=== PATIENT | male | born 1975 | race Caucasian/White ===

== ENCOUNTER → 2021-12-19 | Outpatient (CLI) | payer OTHER ==
--- NOTE | 2021-12-19 13:33 | CONS ---
CONSULTATION DATE OF SERVICE: 12/19/2021 This 46-year-old gentleman has been evaluated [facility] for obstructive sleep apnea-hypopnea syndrome. HISTORY OF PRESENT ILLNESS/SLEEP-WAKE EVALUATION: Patient has a history of obstructive sleep apnea and he was started on treatment with CPAP in 2018. He continued to use CPAP but stopped using it one year ago after he had open-heart surgery for cardiomyopathy. At that time he was not able to tolerate the pressure in his machine. Currently his sleep schedule is from midnight until between 5 and 7 a.m. No problems with falling asleep. He has a TV set in the bedroom. He sleeps in different positions. He wakes up from sleep up to 8 times. Questionable history of hypnagogic hallucinations. No sleep paralysis or cataplexy. He snores loudly and has episodes of stopped breathing during sleep, awakenings with choking, grinding teeth, dry mouth, restless legs and sweating. In the morning the patient wakes up tired, worries about his sleep, has problems with memory, depression, anxiety and sexual dysfunction. Wilson Sleepiness Scale is significantly increased to 16. PAST MEDICAL HISTORY: Positive for cardiomyopathy, hyperlipidemia, hypertension, headaches, acid reflux, hyperlipidemia, depression, anxiety, pericarditis after surgery. PAST SURGICAL HISTORY: Open-heart surgery for obstructive cardiomyopathy on 03/07/2021, pacemaker defibrillation insertion on 09/10/2021. MEDICATIONS: 1. Metoprolol 50 mg twice a day. 2. TriCor 145 mg once a day. 3. Buspirone 15 mg once a day. 4. Eliquis 5 mg twice a day. 5. Atorvastatin 10 mg once a day. 6. Lisinopril 40 mg once a day. 7. Sertraline 50 mg once a day. 8. Topamax 100 mg once a day. SOCIAL HISTORY: Positive for smoking cigars. Alcohol consumption occasional. FAMILY HISTORY: Hypertension, heart problems, stroke, headaches, sleep apnea, diabetes, acid reflux. REVIEW OF SYSTEMS: Multiple awakenings from sleep, loud snoring, sleepiness during the day. No fevers. No double vision. No recent chest pain. No shortness of breath. No abdominal pain. No bleeding episodes. No blood in the urine. No seizure episodes. I checked the patient's CPAP unit. Pressure is 16 cm of water. The patient used it about 10 months ago, and at that time leaks was 31 L/minute. PHYSICAL EXAMINATION: GENERAL: Pleasant patient in no distress. VITAL SIGNS: BP 132/87, HR 71, RR 16, height 6 feet 0 inches, weight 308.6, body mass index 41.7, temperature 97.2, oxygen saturation at room air 97%. HEENT: PERRLA, EOMI, evaluation of oropharynx showed tongue protrudes midline. Big uvula. Mallampati II to III. NECK: Supple, no JVD. Thyroid is not palpable. Wide neck; 19-1/2 inches in circumference. LUNGS: Clear to percussion and to auscultation. Good air exchange. No wheezing or rhonchi. HEART: S1, S2 regular. No murmurs, gallops, or rubs. ABDOMEN: Soft and nontender. Bowel sounds are present. No organomegaly appreciated. EXTREMITIES: No clubbing or cyanosis. SAFE AND VAULT MECHANIC: Awake, alert, and oriented X3. Cranial nerves 2 to 7 intact. There is no fasciculation or atrophy. noted. No focal deficits observed. IMPRESSION: 1. Snoring, witnessed episodes of stopped breathing during sleep, history of obstructive sleep apnea in the past; obstructive sleep apnea-hypopnea syndrome. 2. History of hypertrophic cardiac cardiomyopathy, status post open-heart surgery on 03/07/2021. 3. Status post permanent pacemaker and defibrillator insertion on 09/10/2021. 4. Obesity. 5. Hypertension. 6. Headaches. 7. Acid reflux. 8. Hyperlipidemia. 9. History of pericarditis after surgery. 10.History of depression. 11.History of anxiety. PLAN: 1. I adjusted the patient's machine to automatic regimen, range of the pressure 8 to 14. 2. CPAP, if necessary BiPAP titration for correction of respiratory abnormalities at the present time after open-heart surgery. 3. Losing weight. 4. Sleep hygiene with regular time in bed for 7-1/2 to 8 hours. 5. No driving if feeling sleepiness. Thank you very much for referring this patient for consultation. Sincerely, Rajesh Jung MD, PhD, FAASM Diplomat of [place] [employer] Sleep Medicine Board of [place] [employer] Business Continuity Coordinator of [facility] [place] MMODL / IJN: [id number] /
== END ==
LOC: SLEEP 11:15
PROVIDERS: ATTEND Internal Medicine
DX: G47.33 Obstructive sleep apnea (adult) (pediatric) (principal); E66.9 Obesity, unspecified; I10 Essential (primary) hypertension; K21.9 Gastro-esophageal reflux disease without esophagitis; E78.5 Hyperlipidemia, unspecified; F32.A Depression, unspecified; F41.9 Anxiety disorder, unspecified; Z86.79 Personal history of other diseases of the circulatory system; Z95.810 Presence of automatic (implantable) cardiac defibrillator; Z99.89 Dependence on other enabling machines and devices; Z79.01 Long term (current) use of anticoagulants; F17.200 Nicotine dependence, unspecified, uncomplicated
CPT/HCPCS: 99202

== ENCOUNTER 2024-08-24 16:53 | Observation (INO) | payer OTHER ==
--- NOTE | 2024-08-24 17:12 | ED ---
Chest Pain HPI - General Chief Complaint: Chest Pain Stated Complaint: SOB, chest pain Time Seen by Provider: 08/24/24 17:04 Source: patient, family, RN notes reviewed, old records reviewed Mode of arrival: ambulatory Limitations: no limitations - History of Present Illness Initial Comments: This is a 49-year-old male sent to the ER by his primary care for chest pain chest pain with concern for CHF or fluid around the heart MD Complaint: chest pain -: days(s) Onset: during rest, during exertion Pain Location: substernal, left chest Pain Radiation: none Severity: moderate Severity scale (1-10): 4 Quality: tightness, aching, heaviness Consistency: constant Improves With: nothing Worsens With: exertion Anginal Symptoms: dyspnea Other Symptoms: palpitations Treatments Prior to Arrival: none - Related Data Home Medications Medication Instructions Recorded Confirmed Apixaban [Eliquis] 5 mg PO BID 08/24/24 08/24/24 Ascorbic Acid [Vitamin C] 2,000 mg PO DAILY 08/24/24 08/24/24 Atorvastatin [Lipitor] 10 mg PO HS 08/24/24 08/24/24 Cetirizine HCl [Zyrtec] 10 mg PO DAILY 08/24/24 08/24/24 Cholecalciferol (Vitamin D3) 125 mcg PO DAILY 08/24/24 08/24/24 [Vitamin D3 (125 MCG = 5,000 IU)] Erenumab-Aooe [Aimovig 70 mg SQ QMONTHLY 08/24/24 08/24/24 Autoinjector] Fenofibrate Nanocrystallized 145 mg PO DAILY 08/24/24 08/24/24 [Fenofibrate] Metoprolol Tartrate [Lopressor] 50 mg PO BID 08/24/24 08/24/24 Multivitamins, Thera [Multivitamin 1 tab PO DAILY 08/24/24 08/24/24 (formulary)] Sertraline [Zoloft] 200 mg PO DAILY 08/24/24 08/24/24 Topiramate [Topamax] 100 mg PO HS 08/24/24 08/24/24 Vitamin E (Dl,Tocopheryl Acet) 400 unit PO DAILY 08/24/24 08/24/24 [Vitamin E (400 Iu = 180 mg)] Zinc Gluconate [Zinc] 50 mg PO DAILY 08/24/24 08/24/24 busPIRone HCL 22.5 mg PO HS 08/24/24 08/24/24 Previous Rx's Medication Instructions Recorded Amiodarone [Cordarone] 400 mg PO BID #180 tab 08/26/24 Dapagliflozin Propanediol [Farxiga] 10 mg PO DAILY #30 tab 08/26/24 Losartan [Cozaar] 25 mg PO DAILY #30 tab 08/26/24 Spironolactone [Aldactone] 12.5 mg PO DAILY #30 tab 08/26/24 Allergies Allergy/AdvReac Type Severity Reaction Status Date / Time No Known Allergies Allergy Verified 08/24/24 20:39 Review of Systems ROS Statement: Those systems with pertinent positive or pertinent negative responses have been documented in the HPI. ROS Other: All systems not noted in ROS Statement are negative. EKG Findings - EKG Comments: EKG Findings:: EKG is sinus 82 GA 168 QRS 157 QTc 454 - EKG Results: EKG: interpreted by CARY Past Medical History Past Medical History: Hyperlipidemia, Hypertension Additional Past Medical History / Comment(s): pericarditis Past Surgical History: Orthopedic Surgery Additional Past Surgical History / Comment(s): Open heart Smoking Status: Light tobacco smoker Past Alcohol Use History: Rare Past Drug Use History: None Reported - Past Family History Father Family Medical History: CVA/TIA, Hyperlipidemia, Hypertension, Myocardial Infarction ([place]) Mother Family Medical History: No Reported History General Exam Limitations: no limitations General appearance: alert, in no apparent distress, anxious Head exam: Present: atraumatic, normocephalic, normal inspection Eye exam: Present: normal appearance, PERRL, EOMI. Absent: scleral icterus, conjunctival injection, periorbital swelling ENT exam: Present: normal exam, mucous membranes moist Neck exam: Present: normal inspection. Absent: tenderness, meningismus, lymphadenopathy Respiratory exam: Present: normal lung sounds bilaterally. Absent: respiratory distress, wheezes, rales, rhonchi, stridor Cardiovascular Exam: Present: regular rate, normal rhythm, normal heart sounds. Absent: systolic murmur, diastolic murmur, rubs, gallop, clicks GI/Abdominal exam: Present: soft, normal bowel sounds. Absent: distended, tenderness, guarding, rebound, rigid Extremities exam: Present: normal inspection, full ROM, normal capillary refill. Absent: tenderness, pedal edema, joint swelling, calf tenderness Back exam: Present: normal inspection Neurological exam: Present: alert, oriented X3, CN II-XII intact Psychiatric exam: Present: normal affect, normal mood Skin exam: Present: warm, dry, intact, normal color. Absent: rash Course Vital Signs 08/24/24 08/24/24 08/24/24 16:56 17:20 21:00 Temperature 98.3 F Pulse Rate 80 65 Pulse Rate [ 72 Licensed Psychologist Director ] Respiratory 20 16 Rate Blood Pressure 142/84 111/71 Blood Pressure [Right Arm] O2 Sat by Pulse 96 97 Oximetry 08/24/24 08/25/24 08/25/24 22:00 00:00 04:00 Temperature 98.3 F Pulse Rate 69 Pulse Rate [ 73 80 Licensed Psychologist Director ] Respiratory 22 18 16 Rate Blood Pressure 117/70 Blood Pressure 109/74 127/70 [Right Arm] O2 Sat by Pulse 95 97 80 L Oximetry 08/25/24 08/25/24 08/25/24 07:04 07:30 08:00 Temperature 98.5 F Pulse Rate 138 H 93 Pulse Rate [ 122 H Licensed Psychologist Director ] Respiratory 18 18 16 Rate Blood Pressure 116/85 121/82 Blood Pressure 118/105 [Right Arm] O2 Sat by Pulse 96 96 96 Oximetry 08/25/24 08/25/24 08/25/24 08:47 10:44 11:14 Temperature 97.9 F Pulse Rate 81 62 Pulse Rate [ Licensed Psychologist Director ] Respiratory 16 18 18 Rate Blood Pressure 112/77 109/68 103/65 Blood Pressure [Right Arm] O2 Sat by Pulse 97 96 97 Oximetry 08/25/24 08/25/24 12:11 13:34 Temperature Pulse Rate 64 Pulse Rate [ Licensed Psychologist Director ] Respiratory 18 Rate Blood Pressure 113/70 108/67 Blood Pressure [Right Arm] O2 Sat by Pulse 96 Oximetry - Reevaluation(s) Reevaluation #1: 08/24/24 17:11 Medical records reviewed Reevaluation #2: 08/24/24 17:11 Patient symptoms unchanged Reevaluation #3: 08/24/24 20:24 Patient informed of results questions answered Reevaluation #4: Was pt. sent in by a medical professional or institution (, PA, TECHNICAL PROGRAMS MANAGER, urgent care, hospital, or residential...) When possible be specific @ -no Did you speak to anyone other than the patient for history (EMS, parent, family, police, friend...)? What history was obtained from this source @ -no Did you review nursing and triage notes (agree or disagree)? Why? @ -agree Are old charts reviewed (outside hosp., previous admission, EMS record, old EKG, old radiological studies, urgent care reports/EKG's, residential records)? Report findings @ -yes Differential Diagnosis (chest pain, altered mental status, abdominal pain women, abdominal pain men, vaginal bleeding, weakness, fever, dyspnea, syncope, headache, dizziness, GI bleed, back pain, seizure, CVA, palpatations, mental health, musculoskeletal)? @ -prior EKG interpreted by me (3pts min.). @ -yes X-rays interpreted by me (1pt min.). @ -yes negative for acute disease CT interpreted by me (1pt min.). @ -Yes negative for acute disease U/S interpreted by me (1pt. min.). @ -no What testing was considered but not performed or refused? (CT, X-rays, U/S, labs)? Why? @ -none What meds were considered but not given or refused? Why? @ -none Did you discuss the management of the patient with other professionals (professionals i.e. , PA, TECHNICAL PROGRAMS MANAGER, lab, RT, psych nurse, transition social worker, food service sales representatives, teacher, chairman & chief executive officer, case making machine operator)? Give summary @ -no Was smoking cessation discussed for >3mins.? @ -no Was critical care preformed (if so, how long)? @ -yes31 Were there social determinants of health that impacted care today? How? (Homelessness, low income, unemployed, alcoholism, drug addiction, transportation, low edu. Level, literacy, decrease access to med. care, [facility], rehab)? @ -none Was there de-escalation of care discussed even if they declined (Discuss DNR or withdrawal of care, Hospice)? DNR status @ -no What co-morbidities impacted this encounter? (DM, HTN, Smoking, COPD, CAD, Cancer, CVA, ARF, Chemo, Hep., AIDS, mental health diagnosis, sleep apnea, morbid obesity)? @ -none Was patient admitted / discharged? Hospital course, mention meds given and route, prescriptions, significant lab abnormalities, going to OR and other pertinent info. @ - 49 male to ER for evaluation of chest pain but mainly exertional dyspnea going on for days to weeks to months. Progressively worsening to the point where patient is unable to do his normal activities of daily living and comes to the ER for further help in evaluation Admitted Undiagnosed new problem with uncertain prognosis? @ -no Drug Therapy requiring intensive monitoring for toxicity (Heparin, Nitro, Insulin, Cardizem)? @ -no Were any procedures done? @ -no Diagnosis/symptom? @ -Chest pain Acute, or Chronic, or Acute on Chronic? @ -Acute Uncomplicated (without systemic symptoms) or Complicated (systemic symptoms)? @ -Complicated Side effects of treatment? @ -no Exacerbation, Progression, or Severe Exacerbation? @ -exacerbation Poses a threat to life or bodily function? How? (Chest pain, [place], [place], pneumonia, PE, COPD, DKA, ARF, appy, cholecystitis, CVA, Diverticulitis, Homicidal, Suicidal, threat to staff... and all critical care pts) @ -yes chest pain Reevaluation #5: Differential Dyspnea: Coronary syndrome, arrhythmia, tamponade, asthma, COPD, pulmonary embolism, pneumonia, pneumothorax, pulmonary effusion, anaphylaxis, diabetic ketoacidosis, flailed chest, pulmonary contusion, diaphragmatic rupture, anemia, neuromuscular, this is not meant to be an all-inclusive list. - Consultations Consultation #1: Spoke with Lavelle who agrees to admit the patient Chest Pain MDM - MDM 49 male to ER for evaluation of chest pain but mainly exertional dyspnea going on for days to weeks to months. Progressively worsening to the point where patient is unable to do his normal activities of daily living and comes to the ER for further help in evaluation Critical Care Time Critical Care Time: Yes Total Critical Care Time: 31 Disposition Clinical Impression: Atypical chest pain, Chest pain, Exertional dyspnea Disposition: ADMITTED IP TO THIS HOSP Condition: Stable Is patient prescribed a controlled substance at d/c from ED?: No Time of Disposition: 20:25
--- NOTE | 2024-08-24 18:10 | XR ---
EXAMINATION TYPE: XR chest 2V DATE OF EXAM: 08/24/2024 COMPARISON: None INDICATION: Chest pain short of breath TECHNIQUE: Frontal and lateral views of the chest are obtained. FINDINGS: The heart size is normal. The pulmonary vasculature is normal. The lungs are clear. Pacemaker overlies the left chest. IMPRESSION: 1. No acute pulmonary process. [facility], Workstation: [facility], 08/24/2024 6:07 PM
[2024-08-24 18:23] LABS: Basophils % (A) 0 %; Eosinophils # (A) 0.5 k/uL (0-0.7); Eosinophils % (A) 5 %; HCT 42.3 % (39.0-53.0); HGB 13.9 gm/dL (13.0-17.5); Lymphocytes % (A) 19 %; MCH 30.2 pg (25.0-35.0); MCV 91.7 fL (80.0-100.0); Mean Platelet Volume 8.7; Monocytes # (A) 0.7 k/uL (0-1.0); Monocytes % (A) 7 %; Neutrophils # (A) 7.1 k/uL (1.3-7.7); Neutrophils % (A) 68 %; Platelet Count 189 k/uL (150-450); RBC 4.61 m/uL (4.30-5.90); RDW 12.9 % (11.5-15.5); WBC 10.5 k/uL (3.8-10.6)
[2024-08-24 18:39] LABS: ALT 20 U/L (4-49); AST 24 U/L (17-59); African American GFR (CKD) 73 (>60 ml/min/1.73 sqM); Alkaline Phosphatase 78 U/L (38-126); Anion Gap 8 mmol/L; Blood Urea Nitrogen 17 mg/dL (9-20); Calcium 9.9 mg/dL (8.4-10.2); Carbon Dioxide 18 mmol/L (22-30); Chloride 115 mmol/L (98-107); Glucose 164 mg/dL (74-99); Lipase 188 U/L (23-300); Magnesium 1.7 mg/dL (1.6-2.3); Non-African American GFR(CKD) 63 (>60 ml/min/1.73 sqM); Potassium 3.8 mmol/L (3.5-5.1); Sodium 141 mmol/L (137-145); Total Bilirubin 0.7 mg/dL (0.2-1.3); Total Protein 6.7 g/dL (6.3-8.2)
[2024-08-24 18:40] LABS: Partial Thromboplastin Time 33.6 sec (22.0-30.0); Prothrombin Time 11.1 sec (10.0-12.5)
[2024-08-24 18:47] LABS: NT-Pro-B-Type Natriuretic Pept 652 pg/mL
--- NOTE | 2024-08-24 20:04 | CT ---
CTA CHEST EXAMINATION TYPE: CT angio chest DATE OF EXAM: 08/24/2024 INDICATION: R/O PE. CT DLP: 951.5 mGycm, Automated exposure control for dose reduction was used. CONTRAST: Patient injected with 100ml mL of Isovue 370. COMPARISON: None TECHNIQUE: CT of the chest is performed on a spiral scan at 2 mm thick sections. Study is performed with intravenous contrast timed for evaluation for pulmonary embolism. This will limit additional po rtions of the evaluation. 3-D MIP images reconstructed by the technologist are reviewed on the compu ter in the coronal and sagittal planes. FINDINGS: No persistent filling defects are evident to suggest an acute pulmonary embolism. No mediastinal or hilar adenopathy enlarged by CT criteria is evident. The ascending aorta diameter at the level of the main pulmonary artery is 3.9 cm. The main pulmonary artery diameter at the bifurcation is 2.6 cm. Lung windows are clear. Limited CT sections were through the upper abdomen. Upper abdomen appears unremarkable. IMPRESSION: 1. No acute pulmonary embolism. 2. No acute pulmonary process. [facility], Workstation: [id number], 08/24/2024 8:01 PM
[2024-08-24] MEDS: SODIUM CHLORIDE 0.9% 1,000 ML IV SCH (21:20)
[2024-08-25] MEDS: METOPROLOL TARTRATE 50 MG TAB PO SCH (03:42)
[2024-08-25] MEDS: METOPROLOL TARTRATE 25 MG TAB PO STA (07:28)
[2024-08-25] MEDS: DILTIAZEM DRIP BOLUS FROM BAG 1 MG SOLN IV ONE (07:35)
[2024-08-25] MEDS: DILTIAZEM 125 MG in SODIUM CHLORIDE 0.9% 100 ML IV SCH (07:36)
[2024-08-25] MEDS: DEXTROSE 5% IN WATER 100 ML with AMIODARONE 150 MG IV ONE (08:52)
[2024-08-25] MEDS: APIXABAN 5 MG TAB PO SCH (08:56)
[2024-08-25] MEDS: LORATADINE 10 MG TAB PO SCH (08:57)
[2024-08-25] MEDS: ASCORBIC ACID 500 MG TAB PO SCH (08:57)
[2024-08-25] MEDS: ZINC SULFATE 220 MG CAP PO SCH (08:57)
[2024-08-25] MEDS: CHOLECALCIFEROL 125 MCG (5000 IU) TABLET PO SCH (08:57)
[2024-08-25] MEDS: lisinopriL 20 MG TAB PO SCH (08:58)
[2024-08-25] MEDS: FENOFIBRATE 160 MG TAB PO SCH (08:58)
[2024-08-25] MEDS: SERTRALINE 100 MG TAB PO SCH (08:58)
[2024-08-25] MEDS: MULTIVITAMINS, THERA 1 EACH TAB PO SCH (08:58)
[2024-08-25] MEDS: VITAMIN E (DL,TOCOPHERYL ACET) 400 UNIT (180 MG) CAP PO SCH (08:59)
[2024-08-25] MEDS: AMIODARONE 360 MG in DEXTROSE 5% IN WATER 200 ML IV ONE (09:02)
[2024-08-25] MEDS: METOCLOPRAMIDE 5 MG/ML 2 ML VIAL IVP STA (10:52)
[2024-08-25] MEDS: ACETAMINOPHEN IV (For NPO) 1,000 MG in EMPTY BAG 1 BAG IVPB STA (10:57)
--- NOTE | 2024-08-25 11:06 | CA ---
Transthoracic Echo Report Name: Olivier Urban Age: 49 Gender: M : 1975 Exam Date: 08/25/2024 08:04 Exam Location: [facility] Ht (in): 72 Wt (lb): 290 Ordering Physician: Evan Maldonado DO Attending/Referring Phys: [id number], Joel Pharmacy Technician Assistant Cathy Perez RDCS Procedure CPT: Indications: Heart failure Cardiac Hx: Technical Quality: Technically difficult study Contrast 1: Definity Total Dose (mL): 2 Contrast 2: Total Dose (mL): MEASUREMENTS (Male / Female) Normal Values 2D ECHO LV Diastolic Diameter PLAX 4.2 cm 4.2 - 5.9 / 3.9 - 5.3 cm LV Systolic Diameter PLAX 3.2 cm IVS Diastolic Thickness 1.9 cm 0.6 - 1.0 / 0.6 - 0.9 cm LVPW Diastolic Thickness 1.3 cm 0.6 - 1.0 / 0.6 - 0.9 cm LV Relative Wall Thickness 0.8 RV Internal Dim ED PLAX 2.9 cm LV Diastolic Volume MOD BP 136.0 cm??? 67 - 155 / 56 - 104 cm??? LV Systolic Volume MOD BP 93.3 cm??? 22 - 58 / 19 - 49 cm??? LV Ejection Fraction MOD BP 31.4 % >= 55 % LV Cardiac Index MOD BP 1358.9 cm???/min???m??? LV Diastolic Volume MOD 4C 166.4 cm??? LV Systolic Volume MOD 4C 109.9 cm??? LV Ejection Fraction MOD 4C 34.0 % LV Cardiac Index MOD 4C 1800.4 cm???/min???m??? LV Diastolic Length 4C 8.3 cm LV Systolic Length 4C 7.6 cm LV Diastolic Volume MOD 2C 109.9 cm??? LV Systolic Volume MOD 2C 78.7 cm??? LV Ejection Fraction MOD 2C 28.3 % LV Cardiac Index MOD 2C 990.4 cm???/min???m??? LV Diastolic Length 2C 8.2 cm LV Systolic Length 2C 7.8 cm LA Volume 68.4 cm??? 18 - 58 / 22 - 52 cm??? LA Volume Index 25.9 cm???/m??? 16 - 28 cm???/m??? M-MODE Aortic Root Diameter MM 4.4 cm LA Systolic Diameter MM 4.3 cm LA Ao Ratio MM 1.0 DOPPLER AV Peak Velocity 93.8 cm/s AV Peak Gradient 3.5 mmHg AV Mean Velocity 69.2 cm/s AV Mean Gradient 2.2 mmHg AV Velocity Time Integral 15.5 cm LVOT Peak Velocity 88.5 cm/s LVOT Peak Gradient 3.1 mmHg LVOT Velocity Time Integral 14.9 cm MV Area PHT 4.8 cm??? Mitral E Point Velocity 83.6 cm/s Mitral A Point Velocity 0.2 cm/s Mitral E to A Ratio 347.9 MV Deceleration Time 159.4 ms MV E' Velocity 7.2 cm/s Mitral E to MV E' Ratio 11.6 TR Peak Velocity 202.0 cm/s TR Peak Gradient 16.3 mmHg Right Ventricular Systolic Press 21.3 mmHg FINDINGS Left Ventricle Severely increased septal wall thickness. Severely increased left ventricular systolic volume. Moderately decreased left ventricular ejection fraction. Left ventricular ejection fraction is estimated at 30-35 %. Grade 1 diastolic dysfunction. Right Ventricle Normal right ventricular size and function. Right ventricular systolic pressure within normal limits. Right Atrium Normal right atrial size. Catheter/pacemaker wire in the right atrial cavity. Left Atrium Mildly increased left atrial volume. Mildly increased left atrial area. Mitral Valve Structurally normal mitral valve. Mild mitral annular calcification. Mild-to- moderate mitral regurgitation. Aortic Valve Trileaflet aortic valve. No aortic valve stenosis or regurgitation. Tricuspid Valve Structurally normal tricuspid valve. Mild tricuspid regurgitation. Pulmonic Valve Structurally normal pulmonic valve. Pericardium Small pericardial effusion. Aorta Normal size aortic root and proximal ascending aorta. CONCLUSIONS Severe LV systolic dysfunction with an ejection fraction of 30 to 35% Small pericardial effusion Mild to moderate mitral regurgitation Previewed by: Dr. Tan Alfred MD (Electronically Signed) Final Date: 25 August 2024 11:05
[2024-08-25] MEDS: MAGNESIUM SULFATE-D5W PMX 1 GM in DEXTROSE/WATER 1 100ML.BAG IVPB ONE (11:13)
--- NOTE | 2024-08-25 12:17 | P.CRDCN ---
History of Present Illness History of present illness: HISTORY OF PRESENT ILLNESS: This is a 49-year-old male with a past medical history significant for pericardial effusion, HOCM, atrial fibrillation with previous cardioversion, AICD, and septal myomectomy in 2020. Patient follows with Dr. Clemons at [facility]. We have been asked to see the patient in consultation for CHF. Patient examined at the bedside in the emergency room. Patient presented to the hospital with a chief complaint of shortness of breath. He states that he felt like his esophagus was burning and his chest felt tight. He denied having palpitations. Patient was found to be in A-fib with RVR this morning. He was started on IV Cardizem. He remains in atrial fibrillation with heart rate around 80. Currently denies chest pain or shortness of breath. DIAGNOSTICS: - EKG reveals sinus mechanism with left bundle branch block. PAC/PVCs. Bedside telemetry reveals atrial fibrillation. - Chest xray negative for acute process - Laboratory data: WBC 10.5. Hemoglobin 13.9. Platelet count 189. D-dimer 0.34. Sodium 141. Potassium 3.8. BUN 17. Creatinine 1.31. Troponin negative x 3. proBNP 652. - Current home cardiac medications include Eliquis 5 mg twice a day, Lipitor 10 mg at night, fenofibrate 145 mg daily, metoprolol titrate 50 mg twice a day, li sinopril 20 mg daily - Echocardiogram completed this admission revealed ejection fraction 30 to 35%, mild to moderate MR, mild TR, and small pericardial effusion REVIEW OF SYSTEMS: At the time of my exam: CONSTITUTIONAL: Denies fever or chills. HEENT: Denies blurred vision, vision changes, or eye pain. Denies hemoptysis CARDIOVASCULAR: Denies chest pain. Denies orthopnea. Denies PND. Denies pal pitations RESPIRATORY: Denies shortness of breath. GASTROINTESTINAL: Denies abdominal pain. Denies nausea or vomiting. HEMATOLOGIC: Denies bleeding disorders. GENITOURINARY: Denies any blood in urine. SKIN: Denies pruitis. Denies rash. PHYSICAL EXAM: VITAL SIGNS: Reviewed. GENERAL: Well-developed in no acute distress. HEENT: Head is normocephalic. Pupils are equal, round. Sclerae anicteric. Mucous membranes of the mouth are moist. Neck supple. No JVD or thyromegaly LUNGS: Respirations even and unlabored. Lungs essentially clear to auscultation bilaterally. HEART: Irregular rate and rhythm. S1 and S2 heard. ABDOMEN: Soft. Nondistended. Nontender. EXTREMITIES: Normal range of motion. No clubbing or cyanosis. Peripheral pulses intact. No lower extremity edema NEUROLOGIC: Awake and alert. Oriented x 3. ASSESSMENT: Shortness of breath Paroxysmal atrial fibrillation with RVR History of previous cardioversion History of hypertrophic obstructive cardiomyopathy History of septal myomectomy in 2020 at [facility], patient states cardiac catheterization at that time did not reveal any significant CAD History of AICD implantation History of pericardial effusion History of pericarditis PLAN: 2D echo obtained and reviewed Discontinue IV Cardizem Begin IV amiodarone bolus and drip Continue anticoagulation with Eliquis Continue telemetry monitoring N.p.o. at midnight for possible cardioversion tomorrow Further recommendations pending patient course Nurse practitioner note has been reviewed by physician. Signing provider agrees with the documented findings, assessment, and plan of care documented by INSURANCE SALES PROFESSIONAL as a scribe. Past Medical History Past Medical History: Atrial Fibrillation, Coronary Artery Disease (CAD), Chest Pain / Angina, Hyperlipidemia, Hypertension Additional Past Medical History / Comment(s): pericarditis a few times, CABG in 2020, COVID in jun History of Any Multi-Drug Resistant Organisms: None Reported Past Surgical History: AICD, Orthopedic Surgery Additional Past Surgical History / Comment(s): Open heart Past Anesthesia/Blood Transfusion Reactions: No Reported Reaction Type of Cardiac Device: AICD Device Placement Date:: 2020 Smoking Status: Light tobacco smoker - Past Family History Father Family Medical History: CVA/TIA, Hyperlipidemia, Hypertension, Myocardial Infarction ([place]) Mother Family Medical History: No Reported History Medications and Allergies Home Medications Medication Instructions Recorded Confirmed Type Apixaban [Eliquis] 5 mg PO BID 08/24/24 08/24/24 History Ascorbic Acid [Vitamin C] 2,000 mg PO DAILY 08/24/24 08/24/24 History Atorvastatin [Lipitor] 10 mg PO HS 08/24/24 08/24/24 History Cetirizine HCl [Zyrtec] 10 mg PO DAILY 08/24/24 08/24/24 History Cholecalciferol (Vitamin D3) 125 mcg PO DAILY 08/24/24 08/24/24 History [Vitamin D3 (125 MCG = 5,000 IU)] Erenumab-Aooe [Aimovig 70 mg SQ QMONTHLY 08/24/24 08/24/24 History Autoinjector] Fenofibrate Nanocrystallized 145 mg PO DAILY 08/24/24 08/24/24 History [Fenofibrate] Metoprolol Tartrate [Lopressor] 50 mg PO BID 08/24/24 08/24/24 History Multivitamins, Thera [Multivitamin 1 tab PO DAILY 08/24/24 08/24/24 History (formulary)] Sertraline [Zoloft] 200 mg PO DAILY 08/24/24 08/24/24 History Topiramate [Topamax] 100 mg PO HS 08/24/24 08/24/24 History Vitamin E (Dl,Tocopheryl Acet) 400 unit PO DAILY 08/24/24 08/24/24 History [Vitamin E (400 Iu = 180 mg)] Zinc Gluconate [Zinc] 50 mg PO DAILY 08/24/24 08/24/24 History busPIRone HCL [Buspirone HCl] 22.5 mg PO HS 08/24/24 08/24/24 History lisinopriL [Zestril] 20 mg PO DAILY 08/24/24 08/24/24 History Allergies Allergy/AdvReac Type Severity Reaction Status Date / Time No Known Allergies Allergy Verified 08/24/24 20:39 Physical Exam Vitals: Vital Signs Temp Pulse Pulse Resp BP BP Pulse Ox 08/25/24 08:00 93 16 121/82 96 08/25/24 07:30 98.5 F 138 H 18 116/85 96 08/25/24 07:04 122 H 18 118/105 96 08/25/24 04:00 80 16 127/70 80 L 08/25/24 00:00 98.3 F 73 18 109/74 97 08/24/24 22:00 69 22 117/70 95 08/24/24 21:00 65 16 111/71 97 08/24/24 17:20 72 08/24/24 16:56 98.3 F 80 20 142/84 96 Intake and Output 08/24/24 08/25/24 08/25/24 22:59 06:59 14:59 Other: Voiding Method Urinal Weight 131.542 kg 131.542 kg Results 08/24/24 17:32 08/24/24 17:32 Cardiac Enzymes 08/24/24 08/24/24 08/24/24 Range/Units 17:32 17:32 21:03 AST 24 (17-59) U/L Troponin I <0.012 <0.012 (0.000-0.034) ng/mL 08/25/24 Range/Units 00:16 AST (17-59) U/L Troponin I <0.012 (0.000-0.034) ng/mL Coagulation 08/24/24 Range/Units 17:32 PT 11.1 (10.0-12.5) sec APTT 33.6 H (22.0-30.0) sec CBC 08/24/24 Range/Units 17:32 WBC 10.5 (3.8-10.6) k/uL RBC 4.61 (4.30-5.90) m/uL Hgb 13.9 (13.0-17.5) gm/dL Hct 42.3 (39.0-53.0) % Plt Count 189 (150-450) k/uL Comprehensive Metabolic Panel 08/24/24 Range/Units 17:32 Sodium 141 (137-145) mmol/L Potassium 3.8 (3.5-5.1) mmol/L Chloride 115 H (98-107) mmol/L Carbon Dioxide 18 L (22-30) mmol/L BUN 17 (9-20) mg/dL Creatinine 1.31 H (0.66-1.25) mg/dL Glucose 164 H (74-99) mg/dL Calcium 9.9 (8.4-10.2) mg/dL AST 24 (17-59) U/L ALT 20 (4-49) U/L Alkaline Phosphatase 78 (38-126) U/L Total Protein 6.7 (6.3-8.2) g/dL Albumin 4.0 (3.5-5.0) g/dL Current Medications Generic Name Dose Route Start Last Admin Trade Name Freq PRN Reason Stop Dose Admin Apixaban 5 mg 08/25/24 09:00 Apixaban 5 Mg Tab PO BID [facility] Protocol Ascorbic Acid 2,000 mg 08/25/24 09:00 Ascorbic Acid 500 Mg Tab PO DAILY [facility] Atorvastatin Calcium 10 mg 08/25/24 21:00 Atorvastatin 10 Mg Tab PO HS [facility] Buspirone HCl 20 mg 08/25/24 21:00 Buspirone Hcl 10 Mg Tab PO HS [facility] Buspirone HCl 2.5 mg 08/25/24 21:00 Buspirone Hcl 5 Mg Tab PO HS [facility] Cholecalciferol 125 mcg 08/25/24 09:00 Cholecalciferol 125 Mcg (5000 Iu) Tablet PO DAILY [facility] Fenofibrate 160 mg 08/25/24 09:00 Fenofibrate 160 Mg Tab PO DAILY [facility] Sodium Chloride 1,000 mls @ 20 mls/hr 08/24/24 20:30 08/24/24 21:20 Saline 0.9% IV 20 mls/hr .Q24H [facility] Administration Diltiazem HCl 125 mg/ Sodium 125 mls @ 5 mls/hr 08/25/24 07:30 08/25/24 07:36 Chloride IV 5 mg/hr .Q24H [facility] 5 mls/hr Administration 5 MG/HR Lisinopril 20 mg 08/25/24 09:00 Lisinopril 20 Mg Tab PO DAILY [facility] Loratadine 10 mg 08/25/24 09:00 Loratadine 10 Mg Tab PO DAILY [facility] Metoprolol Tartrate 50 mg 08/25/24 02:11 08/25/24 07:00 Metoprolol Tartrate 50 Mg Tab PO 50 mg BID [facility] Administration Multivitamins 1 each 08/25/24 09:00 Multivitamins, Thera 1 Each Tab PO DAILY [facility] Sertraline HCl 200 mg 08/25/24 09:00 Sertraline 100 Mg Tab PO DAILY [facility] Topiramate 100 mg 08/25/24 21:00 Topiramate 100 Mg Tab PO HS [facility] Vitamin E 400 unit 08/25/24 09:00 Vitamin E (Dl,Tocopheryl Acet) 400 Unit (180 Mg) Cap PO DAILY [facility] Zinc Sulfate 220 mg 08/25/24 09:00 Zinc Sulfate 220 Mg Cap PO DAILY [facility] Intake and Output 08/24/24 08/25/24 08/25/24 22:59 06:59 14:59 Other: Voiding Method Urinal Weight 131.542 kg 131.542 kg 08/24/24 17:32 08/24/24 17:32
[2024-08-25] MEDS: AMIODARONE 450 MG in DEXTROSE 5% IN WATER 250 ML IV SCH (14:00)
--- NOTE | 2024-08-25 15:46 | P.HPIM ---
History of Present Illness H&P Date: 08/25/24 This is a 49-year-old gentleman with past medical history significant for HOCM, septal myomectomy in 2020, pericardial effusion, atrial fibrillation with previous cardioversion, AICD , nicotine dependence-smokes cigars and multiple other medical issues presented to the ER with progressive shortness of breath reports midsternal chest tightness radiating to left chest-"catching sensation", persistent over the last 2 days accompanied by diaphoresis, headache, congestion, cough with mostly clear sputum and diarrhea. On admission discovered to be in A-fib with RVR and Cardizem drip initiated. troponins negative x 3. EKG reporting sinus rhythm left bundle branch block, premature complexes, chest x-ray reports nonacute, chest CTA reported no acute pulmonary embolism, no acute pulmonary process.Echo reported severe LV systolic dysfunction, EF 30 to 35%, small pericardial effusion, mild to moderate mitral regurgitation.Afebrile, normal WBC, hematology unremarkable, INR 1, D-dimer normal 0.34. Bicarb 18, BUN 17, creatinine 1.31., Electrolytes within normal limits, Pro BNP 652. Currently denies chest pain, palpitations or shortness of breath.Maintaining O2 sats in the high 90s on 2 L nasal cannula. Review of Systems ROS Statement: Those systems with pertinent positive or pertinent negative responses have been documented in the HPI. ROS Other: All systems not noted in ROS Statement are negative. Past Medical History Past Medical History: Atrial Fibrillation, Coronary Artery Disease (CAD), Chest Pain / Angina, Hyperlipidemia, Hypertension Additional Past Medical History / Comment(s): pericarditis a few times, CABG in 2020, COVID in sept History of Any Multi-Drug Resistant Organisms: None Reported Past Surgical History: AICD, Orthopedic Surgery Additional Past Surgical History / Comment(s): Open heart Past Anesthesia/Blood Transfusion Reactions: No Reported Reaction Type of Cardiac Device: AICD Device Placement Date:: 2020 Smoking Status: Light tobacco smoker - Past Family History Father Family Medical History: CVA/TIA, Hyperlipidemia, Hypertension, Myocardial Infa rction ([place]) Mother Family Medical History: No Reported History Medications and Allergies Home Medications Medication Instructions Recorded Confirmed Type Apixaban [Eliquis] 5 mg PO BID 08/24/24 08/24/24 History Ascorbic Acid [Vitamin C] 2,000 mg PO DAILY 08/24/24 08/24/24 History Atorvastatin [Lipitor] 10 mg PO HS 08/24/24 08/24/24 History Cetirizine HCl [Zyrtec] 10 mg PO DAILY 08/24/24 08/24/24 History Cholecalciferol (Vitamin D3) 125 mcg PO DAILY 08/24/24 08/24/24 History [Vitamin D3 (125 MCG = 5,000 IU)] Erenumab-Aooe [Aimovig 70 mg SQ QMONTHLY 08/24/24 08/24/24 History Autoinjector] Fenofibrate Nanocrystallized 145 mg PO DAILY 08/24/24 08/24/24 History [Fenofibrate] Metoprolol Tartrate [Lopressor] 50 mg PO BID 08/24/24 08/24/24 History Multivitamins, Thera [Multivitamin 1 tab PO DAILY 08/24/24 08/24/24 History (formulary)] Sertraline [Zoloft] 200 mg PO DAILY 08/24/24 08/24/24 History Topiramate [Topamax] 100 mg PO HS 08/24/24 08/24/24 History Vitamin E (Dl,Tocopheryl Acet) 400 unit PO DAILY 08/24/24 08/24/24 History [Vitamin E (400 Iu = 180 mg)] Zinc Gluconate [Zinc] 50 mg PO DAILY 08/24/24 08/24/24 History busPIRone HCL [Buspirone HCl] 22.5 mg PO HS 08/24/24 08/24/24 History lisinopriL [Zestril] 20 mg PO DAILY 08/24/24 08/24/24 History Allergies Allergy/AdvReac Type Severity Reaction Status Date / Time No Known Allergies Allergy Verified 08/24/24 20:39 Physical Exam Vitals: Vital Signs Temp Pulse Pulse Resp BP BP Pulse Ox 08/25/24 13:52 98.0 F 67 20 124/82 98 08/25/24 13:34 64 18 108/67 96 08/25/24 12:11 113/70 08/25/24 11:14 18 103/65 97 08/25/24 10:44 97.9 F 62 18 109/68 96 08/25/24 08:47 81 16 112/77 97 08/25/24 08:00 93 16 121/82 96 08/25/24 07:30 98.5 F 138 H 18 116/85 96 08/25/24 07:04 122 H 18 118/105 96 08/25/24 04:00 80 16 127/70 80 L 08/25/24 00:00 98.3 F 73 18 109/74 97 08/24/24 22:00 69 22 117/70 95 08/24/24 21:00 65 16 111/71 97 08/24/24 17:20 72 08/24/24 16:56 98.3 F 80 20 142/84 96 Intake and Output 08/24/24 08/25/24 08/25/24 22:59 06:59 14:59 Other: Voiding Method Urinal Urinal Weight 131.542 kg 131.542 kg PHYSICAL EXAM: VITAL SIGNS: [Reviewed] GENERAL: Alert and oriented x 3, sitting up in bed,NAD. HEENT: Normocephalic, atraumatic conjunctivae normal. Sclera anicteric. NECK: No JVD. No thyroid enlargement.No LNs. CARDIOVASCULAR: S1, S2. Irregular rate and rhythm. RESPIRATION: Unlabored, equal air entry, clear to auscultation ,breath sounds diminished in the bases. ABDOMEN: Soft, nontender . No guarding. no masses palpable. No ascites, No hepatosplenomegaly.Bowel sounds heard. LEGS: No edema. no swelling PSYCHIATRY: Alert and oriented X3, mood and affect normal. NERVOUS SYSTEM: Cranial N 2-12 grossly normal. No focal deficits. Strength and sensation grossly intact. Skin: Warm and dry, no rash. Results CBC & Chem 7: 08/24/24 17:32 08/24/24 17:32 Labs: Abnormal Lab Results - Last 24 Hours (Table) 08/24/24 08/24/24 Range/Units 17:32 17:32 APTT 33.6 H (22.0-30.0) sec Chloride 115 H (98-107) mmol/L Carbon Dioxide 18 L (22-30) mmol/L Creatinine 1.31 H (0.66-1.25) mg/dL Glucose 164 H (74-99) mg/dL Thrombosis Risk Factor Assmnt - Choose All That Apply Each Factor Represents 1 point: Age 41-60 years, Obesity (BMI >25) Other Risk Factors: No Other congenital or acquired thrombophilia - If yes, enter type in comment: No Thrombosis Risk Factor Assessment Total Risk Factor Score: 2 Thrombosis Risk Factor Assessment Level: Low Risk Assessment and Plan Assessment: Paroximal atrial fibrillation with RVR Dehydration secondary to diarrhea prior to admission THERESA secondary to ATN, baseline creatinine 1.0 Dyspnea secondary to the above Septal myomectomy, [facility], 2020, patient reports no significant CAD Hypertrophic obstructive cardiomyopathy (HOCM),history of History of previous cardioversion AICD implantation History of pericarditis, pericardial effusion Plan: Continue on current medication regimen ,monitoring and symptomatic treatment. Avoid nephrotoxic agents, ALISON inhibitor placed on hold. Procalcitonin ordered .magnesium/Tylenol for headache .close monitoring of renal function with repeat labs ordered for a.m. anticoagulated on Eliquis. antiarrhythmics as per cardiology. Potential cardioversion tomorrow. The impression and plan of care has been dictated as directed. : I performed a history and examination of this patient, discussed the same with the dictator. I agree with the dictator's note ,documented as a scribe. Any additional findings or plans will be noted.
[2024-08-25] MEDS: diphenhydrAMINE 50 MG/ML 1 ML VIAL IVP STA (17:30)
[2024-08-25] MEDS: LORazepam 2 MG/ML INJ IV STA (17:30)
[2024-08-25] MEDS: TOPIRAMATE 100 MG TAB PO SCH (20:57)
[2024-08-25] MEDS: busPIRone HCl 5 MG TAB PO SCH (20:57)
[2024-08-25] MEDS: busPIRone HCl 10 MG TAB PO SCH (20:57)
[2024-08-25] MEDS: ATORVASTATIN 10 MG TAB PO SCH (20:57)
[2024-08-25 21:16] VITALS: RESP 18
[2024-08-26 08:39] LABS: African American GFR (CKD) >90 (>60 ml/min/1.73 sqM); Anion Gap 9 mmol/L; Blood Urea Nitrogen 16 mg/dL (9-20); Carbon Dioxide 18 mmol/L (22-30); Chloride 110 mmol/L (98-107); Glucose 142 mg/dL (74-99); Non-African American GFR(CKD) >90 (>60 ml/min/1.73 sqM); Sodium 137 mmol/L (137-145)
[2024-08-26] MEDS: LOSARTAN 25 MG TAB PO SCH (09:29)
[2024-08-26] MEDS: DAPAGLIFLOZIN PROPANEDIOL 10 MG TABLET PO SCH (09:30)
[2024-08-26] MEDS: AMIODARONE 200 MG TAB PO SCH (09:30)
[2024-08-26] MEDS: SPIRONOLACTONE 25 MG TAB PO SCH (09:30)
[2024-08-26 09:56] LABS: Basophils % (A) 0 %; Eosinophils # (A) 0.4 k/uL (0-0.7); Eosinophils % (A) 4 %; HCT 45.8 % (39.0-53.0); Lymphocytes # (A) 1.6 k/uL (1.0-4.8); Lymphocytes % (A) 18 %; MCH 30.3 pg (25.0-35.0); MCHC 32.6 g/dL (31.0-37.0); MCV 92.9 fL (80.0-100.0); Mean Platelet Volume 8.1; Monocytes # (A) 0.5 k/uL (0-1.0); Monocytes % (A) 5 %; Neutrophils # (A) 6.4 k/uL (1.3-7.7); Neutrophils % (A) 71 %; Platelet Count 196 k/uL (150-450); RBC 4.93 m/uL (4.30-5.90); RDW 12.7 % (11.5-15.5)
[2024-08-26 11:17] VITALS: BMI 39.9
--- NOTE | 2024-08-26 11:41 | P.DS ---
Providers Date of admission: 08/24/24 20:22 Expected date of discharge: 08/26/24 Attending physician: Edu Lama MD Consults: 08/24/24 20:22 Consult Physician Routine Consulting Provider: Tricia Jack Consult Reason/Comments: chf Do you want consulting provider notified?: Yes Primary care physician: Danika Lama [facility] Course: Final Diagnoses: Paroximal atrial fibrillation with RVR Dehydration secondary to diarrhea prior to admission, improved THERESA secondary to ATN, baseline creatinine 1.0, returned to baseline Dyspnea secondary to the above, resolved Septal myomectomy, [facility], 2020, patient reports no significant CAD Hypertrophic obstructive cardiomyopathy (HOCM),history of History of previous cardioversion AICD implantation History of pericarditis, pericardial effusion Hospital course: This is a 49-year-old gentleman with past medical history significant for HOCM, septal myomectomy in 2020, pericardial effusion, atrial fibrillation with previous cardioversion, AICD , nicotine dependence-smokes cigars and multiple other medical issues presented to the ER with progressive shortness of breath reports midsternal chest tightness radiating to left chest-"catching sensation", persistent over the last 2 days accompanied by diaphoresis, headache, congestion, cough with mostly clear sputum and diarrhea. On admission discovered to be in A-fib with RVR and Cardizem drip initiated. troponins negative x 3. EKG reporting sinus rhythm left bundle branch block, premature complexes, chest x-ray reports nonacute, chest CTA reported no acute pulmonary embolism, no acute pulmonary process.Echo reported severe LV systolic dysfunction, EF 30 to 35%, small pericardial effusion, mild to moderate mitral regurgitation.Afebrile, normal WBC, hematology unremarkable, INR 1, D-dimer normal 0.34. Bicarb 18, BUN 17, creatinine 1.31., Electrolytes within normal limits, Pro BNP 652. Currently denies chest pain, palpitations or shortness of breath.Maintaining O2 sats in the high 90s on 2 L nasal cannula. Sitting up in chair, denies chest pain, palpitations or shortness of breath. Denies any chest pressure. Echo reporting EF 30 to 35%, severely increased septal wall thickness. Completed amiodarone drip, transitioning to oral. Creatinine has returned to baseline currently 0.93. Anticoagulated on Eliquis. Maintained on antiarrhythmics/cardiomyopathic med regimen as per cardiology. Continue monitoring patient on oral amiodarone and patient will be discharged later today in a stable condition with guarded prognosis, pending final clearance per cardiology. The impression and plan of care has been dictated as directed. : I performed a history and examination of this patient, discussed the same with the dictator. I agree with the dictator's note ,documented as a scribe. Any additional findings or plans will be noted. Patient Condition at Discharge: Stable Plan - Discharge Summary Discharge Rx Participant: Yes New Discharge Prescriptions: New Amiodarone [Cordarone] 400 mg PO BID #180 tab Spironolactone [Aldactone] 12.5 mg PO DAILY #30 tab Losartan [Cozaar] 25 mg PO DAILY #30 tab Dapagliflozin Propanediol [Farxiga] 10 mg PO DAILY #30 tab Continue busPIRone HCL 22.5 mg PO HS Fenofibrate Nanocrystallized [Fenofibrate] 145 mg PO DAILY Apixaban [Eliquis] 5 mg PO BID Zinc Gluconate [Zinc] 50 mg PO DAILY Sertraline [Zoloft] 200 mg PO DAILY Topiramate [Topamax] 100 mg PO HS Metoprolol Tartrate [Lopressor] 50 mg PO BID Atorvastatin [Lipitor] 10 mg PO HS Vitamin E (Dl,Tocopheryl Acet) [Vitamin E (400 Iu = 180 mg)] 400 unit PO DAILY Erenumab-Aooe [Aimovig Autoinjector] 70 mg SQ QMONTHLY Ascorbic Acid [Vitamin C] 2,000 mg PO DAILY Multivitamins, Thera [Multivitamin (formulary)] 1 tab PO DAILY Cholecalciferol (Vitamin D3) [Vitamin D3 (125 MCG = 5,000 IU)] 125 mcg PO DAILY Cetirizine HCl [Zyrtec] 10 mg PO DAILY Discontinued lisinopriL [Zestril] 20 mg PO DAILY Discharge Medication List Apixaban [Eliquis] 5 mg PO BID 08/24/24 [History] Ascorbic Acid [Vitamin C] 2,000 mg PO DAILY 08/24/24 [History] Atorvastatin [Lipitor] 10 mg PO HS 08/24/24 [History] Cetirizine HCl [Zyrtec] 10 mg PO DAILY 08/24/24 [History] Cholecalciferol (Vitamin D3) [Vitamin D3 (125 MCG = 5,000 IU)] 125 mcg PO DAILY 08/24/24 [History] Erenumab-Aooe [Aimovig Autoinjector] 70 mg SQ QMONTHLY 08/24/24 [History] Fenofibrate Nanocrystallized [Fenofibrate] 145 mg PO DAILY 08/24/24 [History] Metoprolol Tartrate [Lopressor] 50 mg PO BID 08/24/24 [History] Multivitamins, Thera [Multivitamin (formulary)] 1 tab PO DAILY 08/24/24 [History] Sertraline [Zoloft] 200 mg PO DAILY 08/24/24 [History] Topiramate [Topamax] 100 mg PO HS 08/24/24 [History] Vitamin E (Dl,Tocopheryl Acet) [Vitamin E (400 Iu = 180 mg)] 400 unit PO DAILY 08/24/24 [History] Zinc Gluconate [Zinc] 50 mg PO DAILY 08/24/24 [History] busPIRone HCL 22.5 mg PO HS 08/24/24 [History] Amiodarone [Cordarone] 400 mg PO BID #180 tab 08/26/24 [Rx] Dapagliflozin Propanediol [Farxiga] 10 mg PO DAILY #30 tab 08/26/24 [Rx] Losartan [Cozaar] 25 mg PO DAILY #30 tab 08/26/24 [Rx] Spironolactone [Aldactone] 12.5 mg PO DAILY #30 tab 08/26/24 [Rx] Follow up Appointment(s)/Referral(s): Darlene Clemons MD [REFERRING] - 10/27/24 10:45 am (Office has you on emergent cancellation list and will call with appointment date and time) Danika Lama DO [Primary Care Provider] - 1-2 days Patient Instructions/Handouts: A-fib (Atrial Fibrillation) (DC)
[2024-08-26 12:01] VITALS: BP 120/76; PULSE 64; TEMP 98.4
--- NOTE | 2024-08-26 12:52 | P.PN ---
Subjective HISTORY OF PRESENT ILLNESS: This is a 49-year-old male with a past medical history significant for pericardial effusion, HOCM, atrial fibrillation with previous cardioversion, AICD, and septal myomectomy in 2020. Patient follows with Dr. Clemons at [facility]. We have been asked to see the patient in consultation for CHF. Patient examined at the bedside in the emergency room. Patient presented to the hospital with a chief complaint of shortness of breath. He states that he felt like his esophagus was burning and his chest felt tight. He denied having palpitations. Patient was found to be in A-fib with RVR this morning. He was started on IV Cardizem. He remains in atrial fibrillation with heart rate around 80. Currently denies chest pain or shortness of breath. DIAGNOSTICS: - EKG reveals sinus mechanism with left bundle branch block. PAC/PVCs. Bedside telemetry reveals atrial fibrillation. - Chest xray negative for acute process - Laboratory data: WBC 10.5. Hemoglobin 13.9. Platelet count 189. D-dimer 0.34. Sodium 141. Potassium 3.8. BUN 17. Creatinine 1.31. Troponin negative x 3. proBNP 652. - Current home cardiac medications include Eliquis 5 mg twice a day, Lipitor 10 mg at night, fenofibrate 145 mg daily, metoprolol titrate 50 mg twice a day, lisinopril 20 mg daily - Echocardiogram completed this admission revealed ejection fraction 30 to 35%, mild to moderate MR, mild TR, and small pericardial effusion 08/26/2024 Examined this morning at the bedside. Patient currently denies any chest pain or pressure. He denies shortness of breath. Telemetry reveals sinus mechanism. Patient remains on IV amiodarone. Echocardiogram completed revealing ejection fraction 30 to 35%, mild to moderate mitral regurgitation, and mild tricuspid regurgitation with small pericardial effusion. Patient is unsure if he has had a history of cardiomyopathy in the past. PHYSICAL EXAM: VITAL SIGNS: Reviewed. GENERAL: Well-developed in no acute distress. HEENT: Head is normocephalic. Pupils are equal, round. Sclerae anicteric. Mucous membranes of the mouth are moist. Neck supple. No JVD or thyromegaly LUNGS: Respirations even and unlabored. Lungs essentially clear to auscultation bilaterally. HEART: Regular rate and rhythm. S1 and S2 heard. ABDOMEN: Soft. Nondistended. Nontender. EXTREMITIES: Normal range of motion. No clubbing or cyanosis. Peripheral pulses intact. No lower extremity edema NEUROLOGIC: Awake and alert. Oriented x 3. ASSESSMENT: Shortness of breath Paroxysmal atrial fibrillation with RVR History of previous cardioversion History of hypertrophic obstructive cardiomyopathy History of septal myomectomy in 2020 at [facility], patient states cardiac catheterization at that time did not reveal any significant CAD Cardiomyopathy, 30 to 35%, suspect nonischemic History of AICD implantation History of pericardial effusion History of pericarditis PLAN: Discontinue IV amiodarone. Begin oral amiodarone 400 mg twice a day Add losartan, Farxiga, and Aldactone Awaiting records from patient's primary inorganic chemist Recommend cardiac catheterization to be performed. This may be completed on an outpatient basis with patient's primary inorganic chemist Continue to monitor patient today and increase activity If he remains stable, he may be discharged home this evening Nurse practitioner note has been reviewed by physician. Signing provider agrees with the documented findings, assessment, and plan of care documented by [employer] as a scribe. Objective - Vital Signs Vital signs: Vital Signs Temp 98.4 F 08/26/24 08:00 Pulse 64 08/26/24 08:00 Resp 18 08/26/24 08:00 BP 120/76 08/26/24 08:00 Pulse Ox 96 08/26/24 08:00 FiO2 Intake & Output 08/25/24 08/26/24 08/26/24 18:59 06:59 18:59 Intake Total 118 270 Balance 118 270 Weight 133.5 kg 133.5 kg Intake: IV 20 Invasive Line 1 10 Invasive Line 2 10 Intake, IV Titration 250 Amount Amiodarone 450 mg In 250 Dextrose 5% in Water 250 ml @ 0.5 MG/MIN 16.667 mls/hr IV .Q15H OSMAN Rx#: [id number] Oral 118 Other: Voiding Method Urinal Toilet Toilet # Voids 2 - Labs CBC & Chem 7: 08/26/24 09:37 08/26/24 07:39 Labs: Abnormal Lab Results - Last 24 Hours (Table) 08/26/24 Range/Units 07:39 Chloride 110 H (98-107) mmol/L Carbon Dioxide 18 L (22-30) mmol/L Glucose 142 H (74-99) mg/dL
== END 2024-08-26 14:47 | disposition home health service (06) ==
LOC: EC 16:53 → 3SCARD 20:22
PROVIDERS: ADMIT Family Medicine; ATTEND Family Medicine
DX: I48.0 Paroxysmal atrial fibrillation (principal); E86.0 Dehydration; N17.0 Acute kidney failure with tubular necrosis; I42.1 Obstructive hypertrophic cardiomyopathy; I25.10 Atherosclerotic heart disease of native coronary artery without angina pectoris; I31.39 Other pericardial effusion (noninflammatory); I34.0 Nonrheumatic mitral (valve) insufficiency; I44.7 Left bundle-branch block, unspecified; E78.5 Hyperlipidemia, unspecified; F17.200 Nicotine dependence, unspecified, uncomplicated; Z79.01 Long term (current) use of anticoagulants; Z79.899 Other long term (current) drug therapy; Z95.810 Presence of automatic (implantable) cardiac defibrillator; Z95.1 Presence of aortocoronary bypass graft; Z86.16 Personal history of COVID-19; Z82.49 Family history of ischemic heart disease and other diseases of the circulatory system
CPT/HCPCS: 96366 ×2; 96367 ×2; 96375 ×2; 96365; 99291; 36415; 93005; 93306; 85379; 83880; 80053; 80048; 83690; 83735; 84484 ×2; 85025 ×2; 85610; 85730; 84145; 71046; 71275; G0378 ×3; J2060; J1200; J2765; J0282 ×3; Q9957; J3475; J0131; Q9967